=== PATIENT | male | born 1955 | race Caucasian/White ===

== ENCOUNTER 2018-07-25 14:33 | Emergency (ER) | payer MEDICARE, SELFPAY ==
[2018-07-25 14:36] VITALS: BP 153/74; PULSE 69; RESP 16; TEMP 36.1; O2SAT 100; BMI 33.0
--- NOTE | 2018-07-25 15:14 | RAD_ITS ---
STUDY: X-RAY - LEFT HAND REASON FOR EXAM: Male, 63 years old. Pain and soft tissue swelling TECHNIQUE: 3 view(s) of the hand. COMPARISON: None. FINDINGS: Normal radiocarpal articulation. Normal distal radioulnar joint. Normal visualized carpal bones. Normal carpal articulations Normal carpometacarpal articulation of the thumb. Normal second through fifth carpometacarpal joints. Normal metacarpi. Normal metacarpophalangeal joint of the thumb. Normal interphalangeal joint of the thumb. Normal proximal and distal phalanges of the thumb. Normal metacarpophalangeal joints of the second through fifth fingers. Normal proximal interphalangeal joints of the second through fifth fingers. There are degenerative changes of the thumb, fourth and fifth DIP joints Normal phalanges of the second through fifth fingers. The soft tissue structures are unremarkable. RAD/Hand Min 3 Views IMPRESSION: Mild degenerative changes. No evidence for acute fracture or other significant bony pathology Electronically Signed: Carlton Vivas MD at 16:24 EST , Service support ,
--- NOTE | 2018-07-25 15:17 | ED.DCSUM_ITS ---
- ER Visit Summary Date of Service: 07/25/18 Chief Complaint: Hand pain History of Present Illness: The patient is a 63 M [id number] presenting with 2 weeks of left hand pain. He denies any specific trauma. He denies swelling, erythema, warmth, or palpable mass. He is concerned that this could b e carpal tunnel. It is better with certain positions. It seems to be worse at nighttime when he goes to bed and sometimes he gets up and walks around and shakes his hand a few times and it goes away. He has never had any coldness or color changes. No weakness or paresthesias. No radiation of the pain. Physical Examination: He has minimal tenderness along the palmar aspect of his left hand but overlying skin looks normal. No erythema or warmth. No fluctuance. Normal distal neurovascular examination. No swelling. No streaks of lymphangitis. No evidence of cellulitis. Strong pulse. Normal cap refill. Test Results: Left hand x-ray negative for obvious acute process. He has no evidence of infection. No evidence of an acute thromboembolic event. It is certainly possible that this is carpal tunnel but I cannot say with certainty. It is reassuring however that he does have some relief with extension of his hand. I will place him in a Velcro splint and refer him to orthopedic surgery for follow-up. He will come back if worse. Emergency Department Course and Treatment: Treatment Plan: Disposition: Home stable Impression: Initial encounter left hand pain suspect carpal tunnel This note was generated with [employer] dictation software. It may contain incorrect words, spelling, and punctuation that were not noted in review of the chart prior to signing ED Disposition - Plan for ED Patient: Instructions: ED Carpal Tunnel Referrals: Mauricio Samano DO [STAFF PHYSICIAN] -
[2018-07-25 15:55] VITALS: RESP 12
== END 2018-07-25 16:21 | disposition home or self-care (01) ==
LOC: ED 15:19
PROVIDERS: Emergency Provider Emergency Medicine; Family Provider Family Medicine; PCP Family Medicine
DX: M79.642 Pain in left hand (principal); Z72.0 Tobacco use
CPT/HCPCS: 73130; 99283

== ENCOUNTER 2018-12-18 15:25 | Emergency (ER) | payer MEDICARE, SELFPAY ==
[2018-12-18 15:26] VITALS: BP 147/72; PULSE 104; RESP 18; TEMP 36.4; O2SAT 97; BMI 31.5
[2018-12-18 15:49] VITALS: TEMP 36.4
--- NOTE | 2018-12-18 15:56 | ED.DCSUM_ITS ---
History of Present Illness <Tobi Santana - Last Filed: 12/18/18 15:56> Informant: Patient Onset: Weeks - 2 weeks Context: Gradual Onset Timing: Continuous Quality: aching Location: perineum Current Severity: Severe Maximum Severity: Severe Worsened by: movement, palpation Relieved by: nothing Associated Symptoms: swelling Narrative: 63-year-old male history of diabetes and previous abscess presents to the emergency department with an abscess in his buttocks and scrotum. Is been getting worse for 2 weeks. No spontaneous drainage. No fevers. Mild redness. Normal urination and defecation. No vomiting. Prior similar symptoms: Yes Recent Illness/Hospitalization: No <JessicaMitchel - Last Filed: 12/18/18 16:04> Chief Complaint: Abscess Past Medical History Smoking Status: Former smoker <Tobi Santana - Last Filed: 12/18/18 15:56> Prior records reviewed: Yes Past Medical History: - - Hypertension, hyperlipidemia, coronary artery disease, diabetes mellitus Surgical History: colectomy Lives: Alone <JessicaMitchel - Last Filed: 12/18/18 16:04> - Allergies and Home Meds Allergies/Adverse Reactions: Allergies piperacillin [From Zosyn] Allergy (Verified 12/18/18 15:26) Itching tazobactam [From Zosyn] Allergy (Verified 12/18/18 15:26) Itching Primary Care Physician: Vinod Guan MD [Primary Care Provider] - Review of Systems All systems negative except as indicated General: Denies: Chills, Fever Skin: Reports: Wounds <DesireeshaDevinMitchel - Last Filed: 12/18/18 16:04> Physical Exam Vital Signs/Narrative: Vital Signs Temp Pulse Resp BP Pulse Ox 12/18/18 15:49 97.6 F L 12/18/18 15:26 97.6 F L 104 H 18 147/72 H 97 <MaxTobi - Last Filed: 12/18/18 15:56> Vital Signs/Narrative: Vital Signs Temp Pulse Resp BP Pulse Ox 12/18/18 15:49 97.6 F L 12/18/18 15:26 97.6 F L 104 H 18 147/72 H 97 Inital Vital Signs reviewed: Yes General: Well nourished, Well developed, Obese, No Acute Distress Head: Normocephalic, Atraumatic Eyes: Perrl, EOMI ENT: Moist mucous membranes Neck: Supple, Nontender Cardiovascular: Regular rate, Regular rhythm Respiratory: No distress, CTA bilaterally, Chest nontender Abdomen: Soft, Nontender, Nondistended, Normal bowel sounds, No masses : - - Small area of induration in the perineum at the base of the scrotum. No fluctuance. It is very minimally red. There is no crepitus palpated there is no gangrenous or necrotic tissue. Testicles are nontender on exam. There is no scrotal edema. Back: Nontender Extremities: Nontender, No edema Skin: Normal color, No rash Neurological: Alert, Oriented x3 Psychological: Normal affect, Normal Mood <Mitchel Lopez - Last Filed: 12/18/18 16:04> Diagnostic/Tx/Re-eval - Medical Decision Making JOHNNIE note: 63-year-old diabetic with prior history of perineal abscesses that have been previously drained. Complaining of pain. No fever or chills. Physical exam: Vital signs stable afebrile. No acute dress. Lungs clear to auscultation. Heart regular rhythm no murmur. Abdomen soft nontender. Prior abdominal surgery. Extremities moves all 4. Perineal area examined with the male nurse present in the room there is mild tenderness between his scrotum and his anus its minimally indurated. There is no significant cellulitis. There is no necrotic tissue. There is no fluctuance or anything that appears to need drained at this time. Discussed treatment options with the patient he does not want his I&D at this time. It is not fluctuant I do not think that would be beneficial at this time. He will be started on both Bactrim and Keflex first dose given in the ER. 10 days each. Follow-up with his primary care physician at the [facility]. <Tobi Santana - Last Filed: 12/18/18 15:56> ED Disposition <Tobi Santana - Last Filed: 12/18/18 15:56> <Mitchel Lopez - Last Filed: 12/18/18 16:04> - Plan for ED Patient: Disposition: Home or Assisted Living Diagnosis: Perineal abscess Instructions: ABSCESS, Antiobiotic Treatment Only Prescriptions: Smz/Tmp Ds [Bactrim Ds] 1 tab PO BID #20 tab Prescription Printed Cephalexin [Keflex] 500 mg PO Q12 #20 cap Prescription Printed Hydrocodone Bitart/Apap 5-325 [[place] 5MG-325MG] 1 tab PO Q6H PRN PRN 3 Days #12 tab PRN Reason: Pain Prescription Printed Referrals: Vinod Guan MD [Primary Care Provider] -
[2018-12-18] MEDS: Cephalexin 250 MG Capsule 500 MG PO (16:15)
[2018-12-18] MEDS: Smz/Tmp Ds Tablet 1 TABLET PO (16:15)
[2018-12-18 16:17] VITALS: RESP 17
== END 2018-12-18 16:17 | disposition home or self-care (01) ==
LOC: ED 16:05
PROVIDERS: Emergency Provider Physician Assistant Medical; Family Provider Family Medicine; PCP Family Medicine
DX: L02.215 Cutaneous abscess of perineum (principal); I25.10 Atherosclerotic heart disease of native coronary artery without angina pectoris; I10 Essential (primary) hypertension; E78.5 Hyperlipidemia, unspecified; E11.9 Type 2 diabetes mellitus without complications; Z79.84 Long term (current) use of oral hypoglycemic drugs; Z79.899 Other long term (current) drug therapy; Z87.891 Personal history of nicotine dependence
CPT/HCPCS: 99285